=== PATIENT | female | born 1970 | race African-American/Black ===

== ENCOUNTER 2017-09-14 12:54 | Inpatient (IN) | payer MEDICAID ==
[~2017-09-14] VITALS: Ht 167.6 cm; Wt 99.3 kg
[~2017-09-14 12:54] MED LIST: ALBU2.5V13 IH; AMLO5TAB88 PO; Folic Acid PO; HYDR-3513 PO; MONT10TA21 PO; P20 PO; QUET300T2 PO
[2017-09-14] MEDS ORDERED: ALBUTEROL (0.083%) 2.5MG/3ML NEB HHN STA (13:04)
[2017-09-14] MEDS ORDERED: IPRATROPIUM BROMIDE (0.02%) 0.5MG/2.5ML NEB HHN STA (13:04)
[2017-09-14] MEDS ORDERED: PREDNISONE 20MG TABLET PO STA (13:04)
[2017-09-14] MEDS ORDERED: METHYLPREDNISOLONE SOD SUCC 125 MG/2 ML VIAL IV STA (13:10)
[2017-09-14] MEDS ORDERED: MAGNESIUM 2 G PREMIX 50 ML IV ONE (13:15)
[2017-09-14 14:16] LABS: BASOPHILS % 0.7 % (0.0-2.0); EOSINOPHILS % 0.9 % (0.0-5.0); HEMATOCRIT. 43.9 % (36.0-48.0); HEMOGLOBIN. 14.4 g/dL (12.0-16.0); LYMPHOCYTES % 26.8 % (20.0-50.0); MEAN CORPUSCULAR HEMOGLOBIN 30.7 pg (28.0-32.0); MEAN CORPUSCULAR VOLUME 93.6 fL (81.0-99.0); MEAN PLATELET VOLUME 11.3 fl (7.4-10.4); MONOCYTES % 11.1 % (2.0-8.0); NEUTROPHILS % 60.5 % (40.0-76.0); PLATELET 150 x1000/uL (130-400); RED BLOOD CELL COUNT 4.69 mill/uL (4.2-5.4); RED CELL DISTRIBUTION WIDTH 14.9 % (11.6-14.6)
[2017-09-14 14:18] LABS: PROTHROMBIN TIME 10.7 sec (9.4-11.6)
[2017-09-14 14:21] LABS: CARBON DIOXIDE 24 mEq/L (21-32); CHLORIDE 108 mEq/L (98-107)
[2017-09-14 14:26] LABS: TROPONIN I < 0.02 ng/mL (0.00-0.04)
[2017-09-14] MEDS ORDERED: ACETAMINOPHEN 325MG TABLET PO ONE (15:00)
[2017-09-14] MEDS ORDERED: CLONIDINE 0.1MG TABLET PO PRN (15:45)
[2017-09-14] MEDS ORDERED: NA PHOS,M-B/NA PHOS,DI-BA ENEMA 118ML PR PRN (15:45)
[2017-09-14] MEDS ORDERED: GUAIFENESIN 200MG/10ML SUGAR FREE UDC PO PRN (15:45)
[2017-09-14] MEDS ORDERED: DOCUSATE SODIUM 100MG CAPSULE PO PRN (15:45)
[2017-09-14] MEDS ORDERED: ONDANSETRON HCL 4MG/2ML VIAL IV PRN (15:45)
[2017-09-14] MEDS ORDERED: IPRATROPIUM/ALBUTEROL 0.5-3(2.5)MG/3ML NEB INH PRN (15:45)
[2017-09-14] MEDS ORDERED: DIPHENHYDRAMINE 50MG/ML VIAL IV PRN (15:45)
[2017-09-14] MEDS ORDERED: ACETAMINOPHEN 325MG TABLET PO PRN (15:45)
[2017-09-14] MEDS ORDERED: MAGNESIUM/ALUMINUM HYDROXIDE/SIMETHICONE 30ML UDC PO PRN (15:45)
[2017-09-14] MEDS ORDERED: LORAZEPAM 2MG/ML CPJ IV PRN (15:45)
[2017-09-14] MEDS ORDERED: ACETAMINOPHEN 650MG SUPP PR PRN (15:45)
[2017-09-14 16:02] LABS: CLARITY URINE CLEAR (CLEAR); COLOR URINE YELLOW (YELLOW); KETONES URINE 1+ (NEGATIVE); LEUKOCYTE ESTERASE URINE NEGATIVE (NEGATIVE); NITRITE URINE NEGATIVE (NEGATIVE); OCCULT BLOOD URINE NEGATIVE (NEGATIVE); PROTEIN URINE NEGATIVE (NEGATIVE); SPECIFIC GRAVITY URINE 1.023 (1.005-1.030); UROBILINOGEN URINE 0.2 E.U./dL (0.2-1.0)
[2017-09-14 16:58] LABS: *AMPHETAMINES SCREEN URINE NEGATIVE (NEGATIVE); *BARBITURATES SCREEN URINE NEGATIVE (NEGATIVE); *BENZODIAZEPINES SCREEN URINE NEGATIVE (NEGATIVE); METHADONE URINE SCREEN NEGATIVE (NEGATIVE); PHENCYCLIDINE URINE SCREEN NEGATIVE (NEGATIVE)
[2017-09-14] MEDS: HYDROCODONE/ACETAMINOPHEN 5/325MG TABLET PO PRN ×2 (16:58→23:19)
[2017-09-14 17:12] LABS: *COCAINE SCREEN URINE PRESUMTIVE POSITIVE (NEGATIVE)
[2017-09-14 17:17] LABS: CANNABINOID URINE SCREEN PRESUMTIVE POSITIVE (NEGATIVE); OPIATES URINE SCREEN PRESUMTIVE POSITIVE (NEGATIVE)
[2017-09-14 22:00] VITALS: BP 121/58
[2017-09-14] MEDS: ENOXAPARIN 30MG/0.3ML SYR SUBCUT SCH (23:14)
[2017-09-14] MEDS: SODIUM CHLORIDE 0.9% INJ 3ML FLUSH IVF SCH (23:14)
[2017-09-14] MEDS: METHYLPREDNISOLONE SOD SUCC 125 MG/2 ML VIAL IV SCH (23:15)
[2017-09-14 23:20] VITALS: BP 118/90
[2017-09-15] VITALS (11 sets, daily range): BP systolic 111–139; BP diastolic 62–90
[2017-09-15] MEDS: IPRATROPIUM/ALBUTEROL 0.5-3(2.5)MG/3ML NEB HHN SCH ×5 (04:30→20:37)
[2017-09-15] MEDS: HYDROCODONE/ACETAMINOPHEN 5/325MG TABLET PO PRN ×3 (04:48→21:03)
[2017-09-15] MEDS: METHYLPREDNISOLONE SOD SUCC 125 MG/2 ML VIAL IV SCH ×4 (06:10→23:53)
[2017-09-15] MEDS: SODIUM CHLORIDE 0.9% INJ 3ML FLUSH IVF SCH ×3 (06:10→22:04)
[2017-09-15 07:34] LABS: BASOPHILS % 0.1 % (0.0-2.0); HEMATOCRIT. 41.7 % (36.0-48.0); HEMOGLOBIN. 14.2 g/dL (12.0-16.0); LYMPHOCYTES % 17.6 % (20.0-50.0); MEAN CORPUSCULAR HEMOGLOBIN 31.5 pg (28.0-32.0); MEAN CORPUSCULAR VOLUME 92.6 fL (81.0-99.0); MEAN PLATELET VOLUME 11.8 fl (7.4-10.4); MONOCYTES % 7.5 % (2.0-8.0); NEUTROPHILS % 74.8 % (40.0-76.0); PLATELET 145 x1000/uL (130-400); RED CELL DISTRIBUTION WIDTH 14.7 % (11.6-14.6)
[2017-09-15] MEDS: ENOXAPARIN 30MG/0.3ML SYR SUBCUT SCH ×2 (08:46→22:04)
[2017-09-15 08:49] LABS: CARBON DIOXIDE 28 mEq/L (21-32); CHLORIDE 104 mEq/L (98-107); HDL CHOLESTEROL 51 mg/dL (40-59); LDL CHOLESTEROL 183 mg/dL (5-100)
[2017-09-15 09:08] LABS: BG BASE EXCESS -3.6 mmol/L (-2.0-2.0); BG CARBOXYHEMOGLOBIN 0.2 % (0.5-1.5); BG DEOXYHEMOGLOBIN 3.2 % (0.0-5.0); BG FRACTION INSPIRED OXYGEN 28; BG HCO3 ACT 20.3 mmol/L (22.0-26.0); BG METHEMOGLOBIN 0.3 % (0.0-1.5); BG OXYGEN SATURATION 96.8 % (92.0-98.5); BG OXYHEMOGLOBIN 96.3 % (94.0-97.0); BG PH 7.394 (7.350-7.450); BG PO2 87.4 mmHg (75.0-100.0); BG SAMPLE SITE RIGHT RADIAL; BG TOTAL HEMOGLOBIN 16.5 g/dL (12.0-18.0); BG VENT MODE NASAL CANNULA
[2017-09-15] MEDS ORDERED: MEDICATION NOT ON FORMULARY EA (Quetiapine Fumarate (Seroquel) 300 MG) PO SCH (10:00)
[2017-09-15] MEDS: QUETIAPINE FUMARATE 100MG TABLET PO SCH ×2 (10:34→22:03)
[2017-09-15] MEDS: LEVOFLOXACIN 500MG PREMIX 100 ML IV SCH (22:04)
[2017-09-16] VITALS (13 sets, daily range): BP systolic 112–139; BP diastolic 62–94
[2017-09-16] MEDS: IPRATROPIUM/ALBUTEROL 0.5-3(2.5)MG/3ML NEB HHN SCH ×6 (00:30→20:24)
[2017-09-16] MEDS: HYDROCODONE/ACETAMINOPHEN 5/325MG TABLET PO PRN ×3 (04:58→18:39)
[2017-09-16] MEDS: METHYLPREDNISOLONE SOD SUCC 125 MG/2 ML VIAL IV SCH ×4 (05:00→23:01)
[2017-09-16] MEDS: SODIUM CHLORIDE 0.9% INJ 3ML FLUSH IVF SCH ×3 (05:01→22:56)
[2017-09-16] MEDS: QUETIAPINE FUMARATE 100MG TABLET PO SCH ×2 (08:18→20:16)
[2017-09-16] MEDS: ENOXAPARIN 30MG/0.3ML SYR SUBCUT SCH ×2 (08:19→20:16)
[2017-09-16] MEDS: LEVOFLOXACIN 500MG PREMIX 100 ML IV SCH (22:56)
[2017-09-17] VITALS (12 sets, daily range): BP systolic 124–152; BP diastolic 72–93
[2017-09-17] MEDS: IPRATROPIUM/ALBUTEROL 0.5-3(2.5)MG/3ML NEB HHN SCH ×7 (01:39→23:25)
[2017-09-17] MEDS: HYDROCODONE/ACETAMINOPHEN 5/325MG TABLET PO PRN ×3 (03:21→16:43)
[2017-09-17] MEDS: METHYLPREDNISOLONE SOD SUCC 125 MG/2 ML VIAL IV SCH ×4 (05:18→23:14)
[2017-09-17] MEDS: SODIUM CHLORIDE 0.9% INJ 3ML FLUSH IVF SCH ×3 (05:18→21:14)
[2017-09-17] MEDS: QUETIAPINE FUMARATE 100MG TABLET PO SCH ×2 (08:06→21:14)
[2017-09-17] MEDS: ENOXAPARIN 30MG/0.3ML SYR SUBCUT SCH ×2 (08:07→21:14)
[2017-09-17] MEDS ORDERED: MAGNESIUM/ALUMINUM HYDROXIDE/SIMETHICONE 30ML UDC PO PRN ×3 (16:30)
[2017-09-17] MEDS ORDERED: MAGNESIUM/ALUMINUM HYDROXIDE/SIMETHICONE 30ML UDC PO NR (16:30)
[2017-09-17 17:13] LABS: BG BASE EXCESS 1.1 mmol/L (-2.0-2.0); BG CARBOXYHEMOGLOBIN 0.3 % (0.5-1.5); BG DEOXYHEMOGLOBIN 3.1 % (0.0-5.0); BG HCO3 ACT 25.2 mmol/L (22.0-26.0); BG METHEMOGLOBIN 0.1 % (0.0-1.5); BG OXYGEN SATURATION 96.9 % (92.0-98.5); BG OXYHEMOGLOBIN 96.5 % (94.0-97.0); BG PCO2 38.3 mmHg (35.0-45.0); BG PH 7.436 (7.350-7.450); BG PO2 88.3 mmHg (75.0-100.0); BG SAMPLE SITE RIGHT RADIAL; BG TOTAL HEMOGLOBIN 13.6 g/dL (12.0-18.0); BG VENT MODE NASAL CANNULA
[2017-09-17] MEDS: TERBUTALINE SULFATE 1MG/ML VIAL SUBCUT SCH (17:51)
[2017-09-17 20:35] LABS: HEMOGLOBIN. 12.7 g/dL (12.0-16.0); MEAN CORPUSCULAR HEMOGLOBIN 30.1 pg (28.0-32.0); MEAN CORPUSCULAR VOLUME 92.8 fL (81.0-99.0); MEAN PLATELET VOLUME 11.1 fl (7.4-10.4); PLATELET 138 x1000/uL (130-400); RED CELL DISTRIBUTION WIDTH 15.1 % (11.6-14.6)
[2017-09-17 20:36] LABS: CHLORIDE 101 mEq/L (98-107)
[2017-09-17 20:44] LABS: CARBON DIOXIDE 32 mEq/L (21-32)
[2017-09-17] MEDS ORDERED: FAMOTIDINE 20MG TABLET PO SCH (21:00)
[2017-09-17] MEDS: FAMOTIDINE 20MG TABLET PO SCH (21:14)
[2017-09-17] MEDS: LEVOFLOXACIN 500MG PREMIX 100 ML IV SCH (21:15)
[2017-09-17 22:49] LABS: PLATELET ESTIMATE NORMAL
[2017-09-18] VITALS (12 sets, daily range): BP systolic 113–153; BP diastolic 54–96
[2017-09-18] MEDS: HYDROCODONE/ACETAMINOPHEN 5/325MG TABLET PO PRN ×3 (03:08→16:13)
[2017-09-18] MEDS: IPRATROPIUM/ALBUTEROL 0.5-3(2.5)MG/3ML NEB HHN SCH ×5 (03:46→20:43)
[2017-09-18] MEDS: METHYLPREDNISOLONE SOD SUCC 125 MG/2 ML VIAL IV SCH ×4 (06:59→23:28)
[2017-09-18] MEDS: SODIUM CHLORIDE 0.9% INJ 3ML FLUSH IVF SCH ×3 (07:01→21:45)
[2017-09-18 07:32] LABS: HEMATOCRIT 39.6 % (36.0-48.0); HEMOGLOBIN 12.8 g/dL (12.0-16.0); MEAN CORPUSCULAR HEMOGLOBIN 30.3 pg (28.0-32.0); MEAN CORPUSCULAR VOLUME 93.5 fL (81.0-99.0); PLATELET 149 x1000/uL (130-400); RED BLOOD CELL COUNT 4.24 mill/uL (4.2-5.4); RED CELL DISTRIBUTION WIDTH 14.8 % (11.6-14.6)
[2017-09-18 08:25] LABS: CARBON DIOXIDE 31 mEq/L (21-32); CHLORIDE 103 mEq/L (98-107)
[2017-09-18] MEDS: BUDESONIDE 0.5MG/2ML NEB HHN SCH ×2 (08:43→20:43)
[2017-09-18] MEDS: QUETIAPINE FUMARATE 100MG TABLET PO SCH ×2 (09:07→21:29)
[2017-09-18] MEDS: ENOXAPARIN 30MG/0.3ML SYR SUBCUT SCH ×2 (09:07→21:42)
[2017-09-18] MEDS: TERBUTALINE SULFATE 1MG/ML VIAL SUBCUT SCH ×3 (09:08→17:55)
[2017-09-18] MEDS: LEVOFLOXACIN 500MG PREMIX 100 ML IV SCH (21:29)
[2017-09-18] MEDS: FAMOTIDINE 20MG TABLET PO SCH (21:29)
[2017-09-19] VITALS: BP 133/83
[2017-09-19] MEDS: IPRATROPIUM/ALBUTEROL 0.5-3(2.5)MG/3ML NEB HHN SCH ×3 (01:12→07:36)
[2017-09-19 02:00] VITALS: BP 125/85
[2017-09-19] MEDS: HYDROCODONE/ACETAMINOPHEN 5/325MG TABLET PO PRN ×2 (03:50→08:58)
[2017-09-19 06:00] VITALS: BP 162/83
[2017-09-19] MEDS: SODIUM CHLORIDE 0.9% INJ 3ML FLUSH IVF SCH (06:11)
[2017-09-19] MEDS: METHYLPREDNISOLONE SOD SUCC 125 MG/2 ML VIAL IV SCH ×2 (06:11→12:00)
[2017-09-19] MEDS: BUDESONIDE 0.5MG/2ML NEB HHN SCH (07:37)
[2017-09-19 08:00] VITALS: BP 110/78
[2017-09-19] MEDS: TERBUTALINE SULFATE 1MG/ML VIAL SUBCUT SCH (08:57)
[2017-09-19] MEDS: ENOXAPARIN 30MG/0.3ML SYR SUBCUT SCH (08:57)
[2017-09-19] MEDS: QUETIAPINE FUMARATE 100MG TABLET PO SCH (08:57)
[2017-09-19 10:41] VITALS: BP 122/89
[2017-09-19] MEDS ORDERED: ALBU2.5V13 NEB (10:48)
[2017-09-19] MEDS ORDERED: ALBU6.7H IH (10:48)
[2017-09-19] MEDS ORDERED: P50 PO (10:48)
[2017-09-19] MEDS ORDERED: FLUT1DIS3 IH (10:48)
[2017-09-19] MEDS ORDERED: LEVO500T2 PO (10:48)
[2017-09-19] MEDS ORDERED: AMLO5TAB88 PO (10:48)
[2017-09-19 11:48] VITALS: BP 131/92
== END 2017-09-19 10:35 | disposition home or self-care (01) | DRG 133 ==
LOC: ER 14:08 → 3WST 15:36 → ENRESERV 20:28
PROVIDERS: ADMIT Family Medicine; ATTEND Family Medicine
PROC: 5A09357 Assistance with Respiratory Ventilation, Less than 24 Consecutive Hours, Continuous Positive Airway Pressure (ICD-10-PCS; principal; 2017-09-14)
DX: J96.00 Acute respiratory failure, unspecified whether with hypoxia or hypercapnia (principal); J68.0 Bronchitis and pneumonitis due to chemicals, gases, fumes and vapors; J44.0 Chronic obstructive pulmonary disease with (acute) lower respiratory infection; J44.1 Chronic obstructive pulmonary disease with (acute) exacerbation; J45.901 Unspecified asthma with (acute) exacerbation; F20.9 Schizophrenia, unspecified; I10 Essential (primary) hypertension; E66.9 Obesity, unspecified; T59.91XA Toxic effect of unspecified gases, fumes and vapors, accidental (unintentional), initial encounter; F31.9 Bipolar disorder, unspecified; J98.11 Atelectasis; F14.10 Cocaine abuse, uncomplicated; F12.10 Cannabis abuse, uncomplicated; F17.200 Nicotine dependence, unspecified, uncomplicated; Z79.899 Other long term (current) drug therapy; Z88.0 Allergy status to penicillin; Z91.013 Allergy to seafood; Z91.018 Allergy to other foods; Z88.8 Allergy status to other drugs, medicaments and biological substances; Z68.35 Body mass index [BMI] 35.0-35.9, adult; Y92.89 Other specified places as the place of occurrence of the external cause; Z71.6 Tobacco abuse counseling; Z82.49 Family history of ischemic heart disease and other diseases of the circulatory system
CPT/HCPCS: 36415; 36600; 71045; 80048; 80053; 80061; 80305; 81003; 82375; 82805; 83880; 84484; 85025; 85027; 85610; 87804; 93005; 94640; 94660; 96374; 99291; J1650; J1956; J2930; J3105; J3475; J7050; J7611; J7620; J7626

== ENCOUNTER 2018-01-21 07:33 | Emergency (ER) | payer MEDICAID ==
[~2018-01-21] VITALS: Ht 165.1 cm; Wt 91.0 kg
[~2018-01-21 07:33] MED LIST changes: -ALBU2.5V13 IH; +ALBU2.5V13 NEB; +ALBU6.7H IH; +FLUT1DIS3 IH; -HYDR-3513 PO; +LEVO500T2 PO; -P20 PO; +P50 PO
[2018-01-21 07:38] VITALS: BP 126/90
[2018-01-21] MEDS ORDERED: IPRATROPIUM BROMIDE (0.02%) 0.5MG/2.5ML NEB HHN STA (08:33)
[2018-01-21] MEDS ORDERED: ALBUTEROL (0.083%) 2.5MG/3ML NEB HHN STA (08:33)
[2018-01-21] MEDS ORDERED: METHYLPREDNISOLONE SOD SUCC 125 MG/2 ML VIAL IM STA (08:33)
== END 2018-01-21 09:18 | disposition home or self-care (01) ==
LOC: ER 07:52
DX: J44.1 Chronic obstructive pulmonary disease with (acute) exacerbation (principal); J45.901 Unspecified asthma with (acute) exacerbation; Z88.0 Allergy status to penicillin
CPT/HCPCS: 94640; 96372; 99283; J2930; J7611

== ENCOUNTER 2018-07-18 09:19 | Emergency (ER) | payer MEDICAID ==
[~2018-07-18] VITALS: Ht 165.1 cm; Wt 91.0 kg
[2018-07-18] MEDS ORDERED: ALBUTEROL (0.083%) 2.5MG/3ML NEB HHN STA (09:42)
[2018-07-18] MEDS ORDERED: IPRATROPIUM BROMIDE (0.02%) 0.5MG/2.5ML NEB HHN STA (09:42)
[2018-07-18] MEDS ORDERED: METHYLPREDNISOLONE SOD SUCC 125 MG/2 ML VIAL IV STA (09:42)
[2018-07-18 12:12] VITALS: BP 122/75
== END 2018-07-18 12:14 | disposition home or self-care (01) ==
LOC: ER 10:41
DX: J45.901 Unspecified asthma with (acute) exacerbation (principal); Z88.0 Allergy status to penicillin
CPT/HCPCS: 94644; 96374; 99285; J2930; J7611

== ENCOUNTER 2019-08-14 11:20 | Emergency (ER) | payer SELFPAY ==
[~2019-08-14] VITALS: Ht 172.7 cm; Wt 91.0 kg
[2019-08-14 11:39] VITALS: BP 148/108
[2019-08-14] MEDS ORDERED: ALBUTEROL (0.083%) 2.5MG/3ML NEB HHN STA (11:59)
[2019-08-14] MEDS ORDERED: IPRATROPIUM BROMIDE (0.02%) 0.5MG/2.5ML NEB HHN STA (11:59)
[2019-08-14] MEDS ORDERED: METHYLPREDNISOLONE SOD SUCC 125 MG/2 ML VIAL IM ONE (12:00)
[2019-08-14 13:11] LABS: BASOPHILS % 0.5 % (0.0-2.0); EOSINOPHILS % 1.8 % (0.0-5.0); HEMATOCRIT. 42.1 % (36.0-48.0); HEMOGLOBIN. 14.3 g/dL (12.0-16.0); LYMPHOCYTES % 32.6 % (20.0-50.0); MEAN CORPUSCULAR HEMOGLOBIN 32.8 pg (28.0-32.0); MEAN CORPUSCULAR VOLUME 96.8 fL (81.0-99.0); MEAN PLATELET VOLUME 11.6 fl (7.4-10.4); NEUTROPHILS % 56.1 % (40.0-76.0); PLATELET 163 x1000/uL (130-400); RED BLOOD CELL COUNT 4.35 mill/uL (4.2-5.4); RED CELL DISTRIBUTION WIDTH 14.9 % (11.6-14.6)
[2019-08-14 13:16] LABS: CHLORIDE 108 mEq/L (98-107)
== END 2019-08-14 15:00 | disposition home or self-care (01) ==
LOC: ER 11:20
DX: J44.1 Chronic obstructive pulmonary disease with (acute) exacerbation (principal); R03.0 Elevated blood-pressure reading, without diagnosis of hypertension; F17.200 Nicotine dependence, unspecified, uncomplicated
CPT/HCPCS: 36415; 71045; 80053; 85025; 93005; 94644; 96372; 99285; J2930; J7611; Z7610

== ENCOUNTER 2019-09-07 09:30 | Inpatient (IN) | payer OTHER ==
[~2019-09-07] VITALS: Ht 165.1 cm; Wt 101.2 kg
[2019-09-07] MEDS ORDERED: MAGNESIUM 2 G PREMIX 50 ML IV STA (10:01)
[2019-09-07] MEDS ORDERED: SODIUM CHLORIDE 0.9% 1,000 ML IV ONE (10:01)
[2019-09-07] MEDS ORDERED: ALBUTEROL (0.083%) 2.5MG/3ML NEB HHN STA (10:01)
[2019-09-07] MEDS ORDERED: METHYLPREDNISOLONE SOD SUCC 125 MG/2 ML VIAL IV STA (10:01)
[2019-09-07] MEDS ORDERED: IPRATROPIUM BROMIDE (0.02%) 0.5MG/2.5ML NEB HHN STA (10:01)
[2019-09-07] MEDS ORDERED: MORPHINE SULFATE 4 MG/ML CPJ (NOT FOR IM USE) IV STA (10:03)
[2019-09-07] MEDS ORDERED: ONDANSETRON HCL 4MG/2ML INJ IV STA (10:03)
[2019-09-07] MEDS ORDERED: EPINEPHRINE 1:1000 1 MG/ML AMP IM ONE (10:15)
[2019-09-07 10:38] LABS: BASOPHILS % 0.8 % (0.0-2.0); EOSINOPHILS % 2.5 % (0.0-5.0); HEMATOCRIT. 44.8 % (36.0-48.0); LYMPHOCYTES % 27.8 % (20.0-50.0); MEAN CORPUSCULAR VOLUME 95.7 fL (81.0-99.0); MEAN PLATELET VOLUME 10.4 fl (7.4-10.4); NEUTROPHILS % 57.9 % (40.0-76.0); PLATELET 191 x1000/uL (130-400); RED BLOOD CELL COUNT 4.68 mill/uL (4.2-5.4); RED CELL DISTRIBUTION WIDTH 14.7 % (11.6-14.6)
[2019-09-07 10:45] LABS: CHLORIDE 111 mEq/L (98-107)
[2019-09-07 10:57] LABS: PROTHROMBIN TIME 10.2 sec (9.6-11.0)
[2019-09-07] MEDS ORDERED: MAGNESIUM/ALUMINUM HYDROXIDE/SIMETHICONE 30ML UDC PO PRN (13:00)
[2019-09-07] MEDS: LORATADINE 10MG TABLET PO SCH (13:00)
[2019-09-07] MEDS ORDERED: LEVOFLOXACIN 500MG PREMIX 100 ML IV SCH ×2 (13:00→13:15)
[2019-09-07] MEDS ORDERED: ONDANSETRON HCL 4MG/2ML INJ IV PRN (13:00)
[2019-09-07] MEDS: AMLODIPINE 10MG TABLET PO SCH (13:00)
[2019-09-07] MEDS ORDERED: CLONIDINE 0.1MG TABLET PO PRN (13:00)
[2019-09-07] MEDS ORDERED: ACETAMINOPHEN 325MG TABLET PO PRN (13:00)
[2019-09-07] MEDS ORDERED: DOCUSATE SODIUM 100MG CAPSULE PO PRN (13:00)
[2019-09-07] MEDS ORDERED: IPRATROPIUM/ALBUTEROL 0.5-3(2.5)MG/3ML NEB NEB PRN (13:00)
[2019-09-07] MEDS ORDERED: IPRATROPIUM/ALBUTEROL 0.5-3(2.5)MG/3ML NEB NEB SCH (13:00)
[2019-09-07] MEDS ORDERED: GUAIFENESIN 200MG/10ML SUGAR FREE UDC PO PRN (13:00)
[2019-09-07] MEDS: METHYLPREDNISOLONE SOD SUCC 125 MG/2 ML VIAL IV SCH ×2 (13:00→20:33)
[2019-09-07] MEDS ORDERED: LEVOFLOXACIN 500MG PREMIX 100 ML IV NR ×2 (13:15)
[2019-09-07] MEDS: ENOXAPARIN 40MG/0.4ML SYR SUBCUT SCH (14:00)
[2019-09-07] MEDS: HYDROCODONE/ACETAMINOPHEN 5/325MG TABLET PO PRN ×2 (14:44→20:27)
[2019-09-07] MEDS ORDERED: BENZONATATE 100MG CAPSULE PO PRN (16:00)
[2019-09-07 17:50] VITALS: BP 145/69
[2019-09-07 18:00] VITALS: BP 144/79
[2019-09-07] MEDS: MONTELUKAST SODIUM 10MG TABLET PO SCH (18:43)
[2019-09-07] MEDS ORDERED: POTASSIUM CHLORIDE 20MEQ TABLET SR PO NR (19:15)
[2019-09-07 20:00] VITALS: BP 158/87
[2019-09-07] MEDS: GUAIFENESIN 600MG ER TABLET PO SCH (20:27)
[2019-09-07] MEDS: QUETIAPINE FUMARATE 50MG TABLET PO SCH (20:28)
[2019-09-07] MEDS: IPRATROPIUM/ALBUTEROL 0.5-3(2.5)MG/3ML NEB HHN SCH ×2 (20:50→23:50)
[2019-09-07] MEDS: FLUTICASONE PROPIONATE 50MCG/SPRAY BOTTLE BOTHNSTRLS SCH (21:10)
[2019-09-07 22:00] VITALS: BP 138/76
[2019-09-07 23:33] LABS: CLARITY URINE CLEAR (CLEAR); COLOR URINE YELLOW (YELLOW); KETONES URINE TRACE (NEGATIVE); LEUKOCYTE ESTERASE URINE NEGATIVE (NEGATIVE); NITRITE URINE NEGATIVE (NEGATIVE); OCCULT BLOOD URINE TRACE (NEGATIVE); PROTEIN URINE NEGATIVE (NEGATIVE); SPECIFIC GRAVITY URINE 1.015 (1.005-1.030); UROBILINOGEN URINE 0.2 E.U./dL (0.2-1.0)
[2019-09-07 23:54] LABS: *AMPHETAMINES SCREEN URINE NEGATIVE (NEGATIVE); *BARBITURATES SCREEN URINE NEGATIVE (NEGATIVE); *BENZODIAZEPINES SCREEN URINE NEGATIVE (NEGATIVE); *COCAINE SCREEN URINE NEGATIVE (NEGATIVE); METHADONE URINE SCREEN NEGATIVE (NEGATIVE)
[2019-09-07 23:55] LABS: PHENCYCLIDINE URINE SCREEN NEGATIVE (NEGATIVE)
[2019-09-08] VITALS (12 sets, daily range): BP systolic 119–184; BP diastolic 63–97
[2019-09-08 00:02] LABS: CANNABINOID URINE SCREEN PRESUMTIVE POSITIVE (NEGATIVE); OPIATES URINE SCREEN PRESUMTIVE POSITIVE (NEGATIVE)
[2019-09-08] MEDS: METHYLPREDNISOLONE SOD SUCC 125 MG/2 ML VIAL IV SCH ×4 (01:13→19:44)
[2019-09-08] MEDS: HYDROCODONE/ACETAMINOPHEN 5/325MG TABLET PO PRN ×4 (02:36→19:44)
[2019-09-08] MEDS: IPRATROPIUM/ALBUTEROL 0.5-3(2.5)MG/3ML NEB HHN SCH ×5 (04:00→20:31)
[2019-09-08 06:11] LABS: HEMATOCRIT. 39.6 % (36.0-48.0); HEMOGLOBIN. 13.1 g/dL (12.0-16.0); MEAN CORPUSCULAR HEMOGLOBIN 31.9 pg (28.0-32.0); MEAN CORPUSCULAR VOLUME 96.1 fL (81.0-99.0); MEAN PLATELET VOLUME 11.1 fl (7.4-10.4); PLATELET 172 x1000/uL (130-400); RED BLOOD CELL COUNT 4.12 mill/uL (4.2-5.4); RED CELL DISTRIBUTION WIDTH 14.6 % (11.6-14.6)
[2019-09-08 06:48] LABS: CHLORIDE 110 mEq/L (98-107)
[2019-09-08 07:08] LABS: LDL CHOLESTEROL 147 mg/dL (5-100)
[2019-09-08 07:10] LABS: HDL CHOLESTEROL 57 mg/dL (40-59)
[2019-09-08] MEDS: ENOXAPARIN 40MG/0.4ML SYR SUBCUT SCH (08:50)
[2019-09-08] MEDS: QUETIAPINE FUMARATE 50MG TABLET PO SCH ×2 (08:50→20:15)
[2019-09-08] MEDS: LORATADINE 10MG TABLET PO SCH (08:51)
[2019-09-08] MEDS: ASPIRIN 81MG EC TABLET PO SCH (08:51)
[2019-09-08] MEDS: AMLODIPINE 10MG TABLET PO SCH (08:51)
[2019-09-08] MEDS: GUAIFENESIN 600MG ER TABLET PO SCH (08:51)
[2019-09-08] MEDS: FLUTICASONE PROPIONATE 50MCG/SPRAY BOTTLE BOTHNSTRLS SCH ×2 (08:53→20:15)
[2019-09-08 10:44] LABS: BG BASE EXCESS -9.2 mmol/L (-2.0-2.0); BG CARBOXYHEMOGLOBIN 0.3 % (0.5-1.5); BG DEOXYHEMOGLOBIN 3.3 % (0.0-5.0); BG FRACTION INSPIRED OXYGEN 32; BG HCO3 ACT 16.2 mmol/L (22.0-26.0); BG METHEMOGLOBIN 0.3 % (0.0-1.5); BG OXYGEN SATURATION 96.7 % (92.0-98.5); BG OXYHEMOGLOBIN 96.1 % (94.0-97.0); BG PCO2 33.2 mmHg (35.0-45.0); BG PH 7.306 (7.350-7.450); BG PO2 93.8 mmHg (75.0-100.0); BG SAMPLE SITE RIGHT BRACHIAL; BG TOTAL HEMOGLOBIN 10.1 g/dL (12.0-18.0); BG VENT MODE NASAL CANNULA
[2019-09-08 10:51] LABS: PLATELET ESTIMATE NORMAL
[2019-09-08] MEDS: LEVOFLOXACIN 500MG PREMIX 100 ML IV SCH (13:29)
[2019-09-08] MEDS: MONTELUKAST SODIUM 10MG TABLET PO SCH (17:13)
[2019-09-09] VITALS (11 sets, daily range): BP systolic 108–149; BP diastolic 62–97
[2019-09-09] MEDS: IPRATROPIUM/ALBUTEROL 0.5-3(2.5)MG/3ML NEB HHN SCH ×6 (00:43→20:08)
[2019-09-09] MEDS: METHYLPREDNISOLONE SOD SUCC 125 MG/2 ML VIAL IV SCH ×4 (00:53→20:51)
[2019-09-09] MEDS: HYDROCODONE/ACETAMINOPHEN 5/325MG TABLET PO PRN ×4 (02:04→19:18)
[2019-09-09] MEDS: ASPIRIN 81MG EC TABLET PO SCH (08:25)
[2019-09-09] MEDS: LORATADINE 10MG TABLET PO SCH (08:25)
[2019-09-09] MEDS: QUETIAPINE FUMARATE 50MG TABLET PO SCH ×2 (08:26→21:03)
[2019-09-09] MEDS: ENOXAPARIN 40MG/0.4ML SYR SUBCUT SCH (08:27)
[2019-09-09] MEDS: AMLODIPINE 10MG TABLET PO SCH (08:27)
[2019-09-09] MEDS: GUAIFENESIN-DM 200MG-20MG/10ML UDC PO PRN (08:29)
[2019-09-09] MEDS: FLUTICASONE PROPIONATE 50MCG/SPRAY BOTTLE BOTHNSTRLS SCH ×2 (08:35→21:03)
[2019-09-09] MEDS: LEVOFLOXACIN 500MG PREMIX 100 ML IV SCH (13:04)
[2019-09-09 14:05] LABS: BG BASE EXCESS 1.6 mmol/L (-2.0-2.0); BG BILEVEL POS AIRWAY PRESSURE 15/5; BG CARBOXYHEMOGLOBIN 0.4 % (0.5-1.5); BG DEOXYHEMOGLOBIN 0.6 % (0.0-5.0); BG FRACTION INSPIRED OXYGEN 50; BG HCO3 ACT 27.2 mmol/L (22.0-26.0); BG METHEMOGLOBIN 0.2 % (0.0-1.5); BG OXYGEN SATURATION 99.4 % (92.0-98.5); BG OXYHEMOGLOBIN 98.8 % (94.0-97.0); BG PH 7.389 (7.350-7.450); BG PO2 222.5 mmHg (75.0-100.0); BG SAMPLE SITE RIGHT RADIAL; BG TOTAL HEMOGLOBIN 14.3 g/dL (12.0-18.0); BG VENT MODE MASK - BIPAP; BG VENT RATE 16 set
[2019-09-09] MEDS: MONTELUKAST SODIUM 10MG TABLET PO SCH (16:59)
[2019-09-09] MEDS: FAMOTIDINE 20MG TABLET PO SCH (21:03)
[2019-09-10] VITALS: BP 125/84
[2019-09-10] MEDS: IPRATROPIUM/ALBUTEROL 0.5-3(2.5)MG/3ML NEB HHN SCH ×5 (00:18→16:38)
[2019-09-10 04:00] VITALS: BP 122/92
[2019-09-10] MEDS: METHYLPREDNISOLONE SOD SUCC 125 MG/2 ML VIAL IV SCH ×4 (04:36→20:45)
[2019-09-10] MEDS: HYDROCODONE/ACETAMINOPHEN 5/325MG TABLET PO PRN ×4 (05:00→21:01)
[2019-09-10 08:00] VITALS: BP 117/45
[2019-09-10] MEDS: LORATADINE 10MG TABLET PO SCH (08:55)
[2019-09-10] MEDS: ENOXAPARIN 40MG/0.4ML SYR SUBCUT SCH (08:55)
[2019-09-10] MEDS: QUETIAPINE FUMARATE 50MG TABLET PO SCH ×2 (08:55→20:44)
[2019-09-10] MEDS: ASPIRIN 81MG EC TABLET PO SCH (08:55)
[2019-09-10] MEDS: AMLODIPINE 10MG TABLET PO SCH (08:56)
[2019-09-10] MEDS: FLUTICASONE PROPIONATE 50MCG/SPRAY BOTTLE BOTHNSTRLS SCH ×2 (08:56→20:46)
[2019-09-10] MEDS: FAMOTIDINE 20MG TABLET PO SCH ×2 (08:56→20:45)
[2019-09-10 12:00] VITALS: BP 132/87
[2019-09-10] MEDS: LEVOFLOXACIN 500MG PREMIX 100 ML IV SCH (12:47)
[2019-09-10] MEDS: GUAIFENESIN-DM 200MG-20MG/10ML UDC PO PRN (15:33)
[2019-09-10 16:00] VITALS: BP 162/99
[2019-09-10] MEDS ORDERED: ALBUTEROL (0.083%) 2.5MG/3ML NEB HHN PRN (17:00)
[2019-09-10] MEDS: MONTELUKAST SODIUM 10MG TABLET PO SCH (17:40)
[2019-09-10 20:00] VITALS: BP 111/66
[2019-09-10] MEDS: ALBUTEROL (0.083%) 2.5MG/3ML NEB HHN SCH (21:43)
[2019-09-11] VITALS: BP 140/50
[2019-09-11] MEDS: METHYLPREDNISOLONE SOD SUCC 125 MG/2 ML VIAL IV SCH ×3 (00:38→12:18)
[2019-09-11] MEDS: ACETYLCYSTEINE 100MG/ML 10% VIAL 4ML INH SCH (01:31)
[2019-09-11 04:00] VITALS: BP 135/72
[2019-09-11] MEDS: ALBUTEROL (0.083%) 2.5MG/3ML NEB HHN SCH ×3 (05:44→12:43)
[2019-09-11] MEDS: HYDROCODONE/ACETAMINOPHEN 5/325MG TABLET PO PRN ×2 (05:45→12:17)
[2019-09-11 08:00] VITALS: BP 156/101
[2019-09-11] MEDS ORDERED: FAMOTIDINE 40MG TABLET PO SCH (09:00)
[2019-09-11] MEDS: QUETIAPINE FUMARATE 50MG TABLET PO SCH (09:09)
[2019-09-11] MEDS: ASPIRIN 81MG EC TABLET PO SCH (09:09)
[2019-09-11] MEDS: LORATADINE 10MG TABLET PO SCH (09:09)
[2019-09-11] MEDS: ENOXAPARIN 40MG/0.4ML SYR SUBCUT SCH (09:09)
[2019-09-11] MEDS: AMLODIPINE 10MG TABLET PO SCH (09:12)
[2019-09-11] MEDS: FLUTICASONE PROPIONATE 50MCG/SPRAY BOTTLE BOTHNSTRLS SCH (09:13)
[2019-09-11 11:49] VITALS: BP 150/86
[2019-09-11] MEDS: LEVOFLOXACIN 500MG PREMIX 100 ML IV SCH (12:18)
[2019-09-11 14:47] VITALS: BP 147/96
[2019-09-11] MEDS ORDERED: ATORVASTATIN CALCIUM 20MG TABLET PO SCH (21:00)
[2019-09-12] MEDS ORDERED: ENOXAPARIN 30MG/0.3ML SYR SUBCUT SCH (09:00)
== END 2019-09-11 16:39 | disposition home or self-care (01) | DRG 133 ==
LOC: ER 09:30 → 5EST 11:47 → EDBEDREQ 12:07 → EDBEDREQSVC 12:07 → ENRESERV 15:38
PROVIDERS: ADMIT Hospitalist; ATTEND Hospitalist
PROC: 5A09357 Assistance with Respiratory Ventilation, Less than 24 Consecutive Hours, Continuous Positive Airway Pressure (ICD-10-PCS; principal; 2019-09-07)
PROC: 5A09357 Assistance with Respiratory Ventilation, Less than 24 Consecutive Hours, Continuous Positive Airway Pressure (ICD-10-PCS; 2019-09-09)
PROC: 5A09357 Assistance with Respiratory Ventilation, Less than 24 Consecutive Hours, Continuous Positive Airway Pressure (ICD-10-PCS; 2019-09-10)
DX: J96.00 Acute respiratory failure, unspecified whether with hypoxia or hypercapnia (principal); F20.9 Schizophrenia, unspecified; Z79.2 Long term (current) use of antibiotics; J44.1 Chronic obstructive pulmonary disease with (acute) exacerbation; J45.21 Mild intermittent asthma with (acute) exacerbation; J00 Acute nasopharyngitis [common cold]; F31.9 Bipolar disorder, unspecified; F14.90 Cocaine use, unspecified, uncomplicated; I10 Essential (primary) hypertension; E78.5 Hyperlipidemia, unspecified; Z88.0 Allergy status to penicillin; Z82.49 Family history of ischemic heart disease and other diseases of the circulatory system; Z91.018 Allergy to other foods; Z86.711 Personal history of pulmonary embolism; Z87.891 Personal history of nicotine dependence; Z91.013 Allergy to seafood; Z79.899 Other long term (current) drug therapy; Z79.51 Long term (current) use of inhaled steroids
CPT/HCPCS: 36415; 36600; 71045; 80053; 80061; 80305; 81003; 82375; 82805; 83605; 83880; 84484; 85025; 85379; 87804; 93005; 93970; 94640; 94644; 94660; 96365; 99291; J1650; J1956; J2270; J2405; J2930; J3475; J3490; J7030; J7608; J7611; J7620

== ENCOUNTER 2021-04-03 05:42 | Emergency (ER) | payer OTHER ==
[~2021-04-03] VITALS: Ht 165.1 cm; Wt 90.5 kg
[~2021-04-03 05:42] MED LIST changes: -ALBU6.7H IH; +ALBU6.7H11 IH; +ALBU6.7H9 INH; +AMLO5TAB88 MT; +FLUT1DIS3 INH; -LEVO500T2 PO; +MED4 MT; +MONT10TA21 MT; -P50 PO; +QUET300T2 MT; -QUET300T2 PO
[2021-04-03] MEDS ORDERED: LIDOCAINE HCL/PF 1% 2ML VIAL ONE (05:46)
[2021-04-03] MEDS ORDERED: IPRATROPIUM BROMIDE (0.02%) 0.5MG/2.5ML NEB HHN STA (05:46)
[2021-04-03] MEDS ORDERED: ONDANSETRON HCL 4MG/2ML INJ IV STA ×2 (05:46→08:21)
[2021-04-03] MEDS ORDERED: METHYLPREDNISOLONE SOD SUCC 125 MG/2 ML VIAL IV STA (05:46)
[2021-04-03 06:14] LABS: HEMATOCRIT. 48.1 % (36.0-48.0); HEMOGLOBIN. 15.9 g/dL (12.0-16.0); MEAN CORPUSCULAR HEMOGLOBIN 32.4 pg (28.0-32.0); MEAN CORPUSCULAR VOLUME 97.9 fL (81.0-99.0); MEAN PLATELET VOLUME 11.2 fl (7.4-10.4); PLATELET 118 x1000/uL (130-400); RED BLOOD CELL COUNT 4.91 mill/uL (4.2-5.4); RED CELL DISTRIBUTION WIDTH 15.3 % (11.6-14.6)
[2021-04-03 06:15] LABS: CHLORIDE 100 mEq/L (98-107)
[2021-04-03] MEDS ORDERED: TERBUTALINE SULFATE 1MG/ML VIAL SUBCUT ONE (06:15)
[2021-04-03] MEDS ORDERED: MAGNESIUM 2 G PREMIX 50 ML IV ONE (06:15)
[2021-04-03] MEDS: ALBUTEROL (0.083%) 2.5MG/3ML NEB HHN SCH ×3 (06:17→07:20)
[2021-04-03] MEDS ORDERED: PIPERACILLIN/TAZ 3.375G PREMIX 50 ML IV ONE (06:45)
[2021-04-03] MEDS ORDERED: HYDRALAZINE 20MG/ML VIAL IV ONE (06:45)
[2021-04-03] MEDS ORDERED: VANCOMYCIN 1 G PREMIX 200 ML IV ONE (06:45)
[2021-04-03 06:49] LABS: PLATELET ESTIMATE SLIGHTLY DECREASED
[2021-04-03 07:36] LABS: CLARITY URINE TURBID (CLEAR); COLOR URINE ORANGE (YELLOW); KETONES URINE 1+ (NEGATIVE); LEUKOCYTE ESTERASE URINE 1+ (NEGATIVE); NITRITE URINE POSITIVE (NEGATIVE); OCCULT BLOOD URINE 2+ (NEGATIVE); PH URINE 5.5 (4.5-8.0); PROTEIN URINE 3+ (NEGATIVE)
[2021-04-03 07:39] LABS: BG BASE EXCESS -4.6 mmol/L (-2.0-2.0); BG CARBOXYHEMOGLOBIN 0.4 % (0.5-1.5); BG DEOXYHEMOGLOBIN 0.2 % (0.0-5.0); BG HCO3 ACT 22.4 mmol/L (22.0-26.0); BG METHEMOGLOBIN 0.5 % (0.0-1.5); BG OXYGEN SATURATION 99.8 % (92.0-98.5); BG OXYHEMOGLOBIN 98.9 % (94.0-97.0); BG PCO2 47.9 mmHg (35.0-45.0); BG PH 7.287 (7.350-7.450); BG PO2 490.6 mmHg (75.0-100.0); BG SAMPLE SITE RIGHT RADIAL; BG TOTAL HEMOGLOBIN 16.9 g/dL (12.0-18.0); BG VENT MODE MASK - BIPAP
[2021-04-03] MEDS ORDERED: MORPHINE SULFATE 4 MG/ML CPJ (NOT FOR IM USE) IV STA (08:21)
[2021-04-03] MEDS ORDERED: LEVOFLOXACIN 500MG PREMIX 100 ML IV ONE (08:30)
[2021-04-03] MEDS ORDERED: SODIUM BICARBONATE 8.4% 1 MEQ/ML 50ML SYR IV ONE (09:08)
[2021-04-03] MEDS ORDERED: CALCIUM CHLORIDE 1GM/10ML SYR IV ONE (09:08)
[2021-04-03] MEDS ORDERED: EPINEPHRINE 0.1MG/ML (1:10,000) 10ML SYR ONE (09:08)
[2021-04-03 09:37] LABS: *BENZODIAZEPINES SCREEN URINE NEGATIVE (NEGATIVE)
[2021-04-03 09:38] LABS: *AMPHETAMINES SCREEN URINE NEGATIVE (NEGATIVE); *BARBITURATES SCREEN URINE NEGATIVE (NEGATIVE); *COCAINE SCREEN URINE PRESUMTIVE POSITIVE (NEGATIVE); CANNABINOID URINE SCREEN PRESUMTIVE POSITIVE (NEGATIVE); METHADONE URINE SCREEN NEGATIVE (NEGATIVE); OPIATES URINE SCREEN NEGATIVE (NEGATIVE); PHENCYCLIDINE URINE SCREEN NEGATIVE (NEGATIVE)
[2021-04-03] MEDS ORDERED: CLONIDINE 0.1MG TABLET PO PRN (11:30)
[2021-04-03] MEDS ORDERED: GUAIFENESIN 200MG/10ML SUGAR FREE UDC PO PRN (11:30)
[2021-04-03] MEDS ORDERED: MAGNESIUM/ALUMINUM HYDROXIDE/SIMETHICONE 30ML UDC PO PRN (11:30)
[2021-04-03] MEDS ORDERED: ONDANSETRON HCL 4MG/2ML INJ IV PRN (11:30)
[2021-04-03] MEDS ORDERED: AMLODIPINE 10MG TABLET PO SCH (11:30)
[2021-04-03] MEDS ORDERED: DOCUSATE SODIUM 100MG CAPSULE PO PRN (11:30)
[2021-04-03] MEDS ORDERED: NITROGLYCERIN 0.4MG TABLET SL SL PRN (11:30)
[2021-04-03] MEDS ORDERED: ACETAMINOPHEN 325MG TABLET PO PRN ×2 (11:30)
[2021-04-03] MEDS ORDERED: ALBUTEROL 6.7GM HFA INHALER ORI PRN (11:30)
[2021-04-03] MEDS ORDERED: ENOXAPARIN 40MG/0.4ML SYR SUBCUT SCH (11:30)
[2021-04-03] MEDS ORDERED: KETOROLAC 15MG/ML VIAL IV PRN (11:30)
[2021-04-03 12:12] LABS: T4 FREE 1.16 ng/dL (0.76-1.46)
[2021-04-03 12:34] LABS: FOLIC ACID (FOLATE) SERUM 13.9 ng/mL (>5.38)
[2021-04-03] MEDS ORDERED: AZITHROMYCIN 500 MG in DEXT 5% WATER 250 ML IV SCH (13:00)
[2021-04-03] MEDS ORDERED: METHYLPREDNISOLONE SOD SUCC 125 MG/2 ML VIAL IV SCH (14:00)
[2021-04-03] MEDS ORDERED: ALBUTEROL 6.7GM HFA INHALER ORI SCH (15:00)
[2021-04-03] MEDS ORDERED: MONTELUKAST SODIUM 10MG TABLET PO SCH (17:00)
[2021-04-03 17:15] LABS: CREATINE KINASE 158 IU/L (26-192)
[2021-04-03] MEDS ORDERED: ENOXAPARIN 30MG/0.3ML SYR SUBCUT SCH (21:00)
[2021-04-03] MEDS ORDERED: ZOLPIDEM TARTRATE 5MG TABLET PO PRN (21:00)
[2021-04-03] MEDS ORDERED: GUAIFENESIN/DM 600MG/30MG ER TAB 12HR PO SCH (21:00)
[2021-04-03] MEDS ORDERED: ASCORBIC ACID 500 MG TABLET PO SCH (21:00)
[2021-04-03] MEDS ORDERED: FAMOTIDINE 20MG TABLET PO SCH (21:00)
[2021-04-03 21:04] VITALS: BP 220/110
[2021-04-03] MEDS ORDERED: HYDRALAZINE 20MG/ML VIAL IV PRN (21:45)
[2021-04-03] MEDS ORDERED: NITROGLYCERIN OINT 1GM/INCH UDPKT TD SCH (21:45)
[2021-04-03] MEDS ORDERED: HYDRALAZINE HCL 50MG TABLET PO SCH (22:00)
[2021-04-03] MEDS ORDERED: PROPOFOL 10MG/ML 100ML 100 ML IV PRN (22:15)
[2021-04-03] MEDS ORDERED: CLONIDINE 0.2MG TABLET PO PRN (23:00)
[2021-04-03] MEDS ORDERED: NOREPINEPHRINE 8MG/250ML PMX 250 ML IV ONE (23:00)
[2021-04-04] MEDS ORDERED: CEFTRIAXONE 1 G PREMIX 50 ML IV SCH (09:00)
[2021-04-04] MEDS ORDERED: CHOLECALCIFEROL (D3) 1000 UNIT TABLET PO SCH (09:00)
[2021-04-04] MEDS ORDERED: LORATADINE 10MG TABLET PO SCH (09:00)
[2021-04-04] MEDS ORDERED: ZINC SULFATE 220 MG ( 50 ) CAPSULE PO SCH (09:00)
[2021-04-04] MEDS ORDERED: ASPIRIN 81MG EC TABLET PO SCH (09:00)
== END 2021-04-03 23:07 ==
LOC: ER 05:42 → EDBEDREQ 08:56 → EDBEDREQTM 08:56 → EDBEDREQSVC 18:57 → ER 23:07 → CANRESERV 04-04 01:25 → ENRESERV 04-04 01:25 → CANBEDREQ 04-04 01:38
DX: U07.1 COVID-19 (principal); J96.02 Acute respiratory failure with hypercapnia; J96.01 Acute respiratory failure with hypoxia; J12.82 Pneumonia due to coronavirus disease 2019; J45.901 Unspecified asthma with (acute) exacerbation; N39.0 Urinary tract infection, site not specified; E87.1 Hypo-osmolality and hyponatremia; D69.6 Thrombocytopenia, unspecified; I10 Essential (primary) hypertension; F14.10 Cocaine abuse, uncomplicated; F12.90 Cannabis use, unspecified, uncomplicated; J44.9 Chronic obstructive pulmonary disease, unspecified; E44.0 Moderate protein-calorie malnutrition; Z68.33 Body mass index [BMI] 33.0-33.9, adult; F20.0 Paranoid schizophrenia; Z71.51 Drug abuse counseling and surveillance of drug abuser; F19.10 Other psychoactive substance abuse, uncomplicated; E66.9 Obesity, unspecified; Z88.0 Allergy status to penicillin; Z88.6 Allergy status to analgesic agent; Z91.013 Allergy to seafood; Z79.51 Long term (current) use of inhaled steroids; Z87.891 Personal history of nicotine dependence; Z79.899 Other long term (current) drug therapy; Z91.018 Allergy to other foods
CPT/HCPCS: 36415; 36600; 71045; 80053; 80061; 80305; 81003; 82375; 82550; 82553; 82607; 82728; 82746; 82805; 82962; 83036; 83540; 83550; 83605; 83880; 84145; 84439; 84443; 84484; 85025; 85379; 86140; 87040; 87077; 87086; 87186; 93005; 93970; 94640; 96365; 96366; 96367; 96372; 96375; 96376; 99291; C9803; J0360; J0456; J1650; J1885; J1956; J2270; J2405; J2930; J3105; J3370; J3475; J3490; J7060; U0003; U0005; Z7610; 94002; 94660